=== PATIENT | female | born 1955 | race Caucasian/White ===

== ENCOUNTER 2017-08-12 08:57 | Day surgery (SDC) | payer OTHER ==
[~2017-08-12 08:57] MED LIST: Lactated Ringers 1,000 ML IV SCH
[2017-08-12] MEDS ORDERED: Propofol 200 MG/20 ML SDV ONE ×2 (09:40→10:30)
[2017-08-12] MEDS ORDERED: fentaNYL 100 MCG/2 ML SDV ONE (09:40)
--- NOTE | 2017-08-12 12:11 | OR ---
PREOPERATIVE DIAGNOSIS: History of polyps. POSTOPERATIVE DIAGNOSIS: Normal colonoscopic exam. PROCEDURE PROPOSED: Total flexible colonoscopy. PROCEDURE DONE: Total flexible colonoscopy. INDICATION: This is a 62-year-old female with a history of polyps. Last examination was 8 years ago. She denies any symptomatology. She has a negative family history for colon cancer and polyps. TECHNIQUE: The patient was brought to the endoscopy suite, placed in left lateral decubitus position. She was sedated per [employer] with propofol. The flexible video colonoscope was then passed transanally under visualization advanced to the cecum. Examination revealed normal ascending, transverse, descending, sigmoid, and rectal colon. There was no evidence of any diverticular disease, polyps, colitis, or other abnormalities, and the scope was then withdrawn. The patient tolerated procedure well. FINAL IMPRESSION: 1. Essentially normal colonoscopic exam. 2. History of prior polyps. PLAN: I do feel that she should continue with colonic surveillance every 5 years hereafter due to her history of polyps. SCM: 08/12/2017 10:47:59 MODL: 08/12/2017 11:56:42 /[id number]
== END 2017-08-12 11:47 | disposition home or self-care (01) ==
LOC: VM.SDS 08:57
PROVIDERS: ATTEND Surgery
DX: Z12.11 Encounter for screening for malignant neoplasm of colon (principal); G31.84 Mild cognitive impairment of uncertain or unknown etiology; M81.0 Age-related osteoporosis without current pathological fracture; E53.8 Deficiency of other specified B group vitamins; E55.9 Vitamin D deficiency, unspecified; R73.9 Hyperglycemia, unspecified; K52.9 Noninfective gastroenteritis and colitis, unspecified; Z79.899 Other long term (current) drug therapy; Z98.890 Other specified postprocedural states; Z87.891 Personal history of nicotine dependence; Z86.010 Personal history of colon polyps
CPT/HCPCS: 45378; J2704; J7120; J3010